=== PATIENT | female | born 1980 | race Two or more races ===

== ENCOUNTER 2020-05-29 15:00 | Inpatient (IN) | payer OTHER ==
[~2020-05-29] VITALS: Ht 157.5 cm; Wt 3.2 kg
[2020-06-16] MEDS ORDERED: PROAIR HFA8.5 GM (07:49)
[2020-06-16] MEDS ORDERED: PEPCID AC10 MG (07:49)
[2020-06-16] MEDS ORDERED: PRENATAL CAPLE1 EAC1 (07:50)
[2020-06-16] MEDS ORDERED: FLOVENT DISKUS50 MCG (07:50)
== END 2020-06-19 11:36 | disposition home or self-care (01) | DRG 788 ==
LOC: LDR 06-11 15:00 → OB/GYN 06-16 06:39 → SURG-SUITE 06-16 18:49 → OB/GYN 06-18 18:08
PROVIDERS: ADMIT Obstetrics & Gynecology; ATTEND Obstetrics & Gynecology
PROC: 3E033VJ Introduction of Other Hormone into Peripheral Vein, Percutaneous Approach (ICD-10-PCS; 2020-06-16)
PROC: 4A1HXFZ Monitoring of Products of Conception, Cardiac Rhythm, External Approach (ICD-10-PCS; 2020-06-16)
PROC: 10D00Z1 Extraction of Products of Conception, Low, Open Approach (ICD-10-PCS; principal; 2020-06-16 16:00)
DX: O66.0 Obstructed labor due to shoulder dystocia (principal); O65.9 Obstructed labor due to maternal pelvic abnormality, unspecified; O62.1 Secondary uterine inertia; Z3A.40 40 weeks gestation of pregnancy; Z37.0 Single live birth; Z20.828 Contact with and (suspected) exposure to other viral communicable diseases